=== PATIENT | female | born 1980 | race Caucasian/White ===

== ENCOUNTER 2017-06-25 09:02 | Emergency (ER) | payer BC, OTHER ==
[~2017-06-25] VITALS: Ht 157.5 cm; Wt 70.1 kg
[~2017-06-25 09:02] MED LIST: FERR1TAB23; PRENTAB26 PO
[2017-06-25 09:11] VITALS: TEMP 37; Ht 157.5 cm; Wt 70.1 kg
[2017-06-25] MEDS ORDERED: SODIUM CHLORIDE 0.9% 1000ML 1,000 ML IV ONE (10:00)
[2017-06-25] MEDS ORDERED: DiphenhydrAMINE HCL 50 MG/ML VIAL IV STA (10:00)
[2017-06-25] MEDS ORDERED: METOCLOPRAMIDE HCL INJ 5 MG/ML 2 ML VIAL IV. STA (10:00)
[2017-06-25 10:25] LABS: BASO % 0.1 %; BASO ABS # 0.01 K/uL (0-0.2); EOS % 0.3 %; EOS ABS # 0.03 K/uL (0-0.5); HEMATOCRIT 39.8 % (37-47); HEMOGLOBIN 13.5 g/dL (12.0-16.0); IG# 0.01 K/uL (0.00-0.02); LYMPH % 17.7 %; LYMPH ABS # 1.56 K/uL (1.2-3.4); MEAN CELL VOLUME 86.9 fL (80-100); MEAN CORPUSCULAR HEMOGLOBIN 29.5 pg (25-34); MEAN CORPUSCULAR HGB CONC 33.9 g/dl (32-36); MONO % 9.9 %; MONO ABS # 0.87 K/uL (0.11-0.59); NEUT % 71.9 %; NEUT ABS # 6.32 K/uL (1.4-6.5); PLATELET COUNT 273 K/uL (130-400); RED CELL DISTRIBUTION WIDTH CV 12.9 % (11.5-14.5); RED CELL DISTRIBUTION WIDTH SD 41.4 fL (36.4-46.3)
[2017-06-25 10:40] LABS: ALBUMIN 3.6 gm/dl (3.4-5.0); ALT/SGPT 28 U/L (12-78); AST/SGOT 13 U/L (15-37); BLOOD UREA NITROGEN 8 mg/dl (7-18); CALCIUM 8.8 mg/dl (8.5-10.1); CARBON DIOXIDE 24 mmol/L (21-32); CREATININE 0.85 mg/dl (0.60-1.20); GLUCOSE 90 mg/dl (70-99); LIPASE 125 U/L (73-393); POTASSIUM 3.9 mmol/L (3.5-5.1); SODIUM 139 mmol/L (136-145)
--- NOTE | 2017-06-25 10:41 | DIAGNOSTIC IMAGING REPORT ---
HEAD WITHOUT CONTRAST (CT) CLINICAL HISTORY: 37 years-old Female presenting with headache, migraine headache lasting one week. TECHNIQUE: Multidetector CT imaging of the head was performed without the use of intravenous contrast. IV contrast: None. A dose lowering technique was used consistent with the principles of ALARA (as low as reasonably achievable). COMPARISON: MR brain from 2008. CT DOSE (mGy.cm): The estimated cumulative dose is 537.48 mGy.cm. FINDINGS: Knocker Off topogram: Unremarkable. Ventricles and sulci normal in size. Brain parenchyma normal in appearance with preserved minor-white differentiation. No mass effect or midline shift. No hemorrhage or acute territorial infarct. No extra-axial fluid collection. Paranasal sinuses and mastoid air cells clear. Calvarium intact. IMPRESSION: 1. No acute intracranial abnormality. Electronically signed by: Can Rodas M.D. 06/25/2017 10:39 AM Dictated Date/Time: 06/25/2017 10:37 AM
[2017-06-25 10:43] LABS: ALKALINE PHOSPHATASE 105 U/L (45-117); TOTAL PROTEIN 7.7 gm/dl (6.4-8.2)
[2017-06-25] MEDS ORDERED: FRCT/ PO (12:12)
--- NOTE | 2017-06-25 12:17 | EMERGENCY ROOM VISIT NOTE ---
History Report prepared by Shania: Chevy Cardoza Under the Supervision of: Dr. Brandon Diana M.D. First contact with patient: 09:36 Chief Complaint: HEADACHE Stated Complaint: MIGRAINE THAT WON'T GO AWAY, BACK AND STOMACH PAIN History of Present Illness The patient is a 37 year old female who presents to the Emergency Room with complaints of a waxing and waning headache beginning a week ago. She has a history of migraines and states that her current headache feels like a typical migraine. Patient describes the pain as 9 out of 10. The patient has taken Excedrin Migraine and Tylenol for her symptoms, but nothing has improved her pain. She normally takes Fioricet PRN, but recently ran out. She states that her headache has been switching between a migraine, and a "dull" headache. The patient also complains of neck pain, vomiting, abdominal pain, and back pain. Her abdominal and back pain change locations regularly and have been present for the past week along with her headache. She vomited twice two days ago. The patient denies bloody vomit, black or bloody stools, rashes, or vaginal bleeding. She has a history of tubal ligation but is concerned she could be . Her LNMP was June 04- (about three weeks ago). The patient denies drug or recent alcohol use. She denies smoking. She has been seen in emergency departments in the past for migraines, and states that she is usually given Morphine for her pain. Source of History: patient Onset: One week ago Position: head Timing: waxes/wanes Modifying Factors (Relieving): other (none) Associated Symptoms: + neck pain, + vomiting (twice, two days ago), + abdominal pain (x1 week), + back pain (x1 week), No melena, No hematochezia, No rash Note: The patient denies bloody vomit, or vaginal bleeding. Review of Systems See HPI for pertinent positives and negatives. A total of ten systems were reviewed and were otherwise negative. Past Medical & Surgical Medical Problems: (1) laparoscopic bilateral tubal cauterization (2) Migraines (3) Unwanted fertility (4) Vaginal delivery Family History No pertinent family history stated. Social History Smoking Status: Never Smoker Alcohol Use: none Marital Status: Current/Historical Medications Scheduled PRN Acetamin/Butalbital/Caffeine (Fioricet), 1 TAB PO TID PRN for Headache Allergies Coded Allergies: Ketorolac (Unverified Allergy, Mild, 06/25/17) Sumatriptan (Unverified Allergy, Unknown, THROAT SWELLS., 06/25/17) Physical Exam Vital Signs Date Time Temp Pulse Resp B/P (MAP) Pulse Ox O2 Delivery O2 Flow Rate FiO2 06/25/17 12:50 76 109/79 97 06/25/17 11:54 78 119/85 99 06/25/17 10:43 118/81 06/25/17 09:11 37.0 88 18 149/84 96 Room Air Physical Exam Physical Exam GENERAL: She is oriented to person, place, and time. She appears well- developed and well-nourished. She does not appear distressed. ____ HENT: Exam performed. Head: Normocephalic and atraumatic. Right Ear: External ear normal. No mastoid tenderness. Left Ear: External ear normal. No mastoid tenderness. Mouth/Throat: The oropharynx is clear and moist. No trismus in the jaw. No dental abscesses or uvula swelling. Poor dentition noted. No oropharyngeal exudate or tonsillar abscesses. ____ EYES: Conjunctivae and EOM are normal. Pupils are equal, round, and reactive to light. Right eye exhibits no discharge. Left eye exhibits no discharge. No scleral icterus. No AV nicking or papilledema bilaterally.____ NECK: Normal range of motion. Neck supple. No JVD present. No spinous process tenderness present. No carotid bruit present. No rigidity. No tracheal deviation and normal range of motion present. No Brudzinski's sign and no Kernig 's sign noted. ____ CV: Normal rate, regular rhythm, normal heart sounds and intact distal pulses. There is no peripheral edema. Palpable radial pulses bue. ____ PULM/CHEST: Effort normal and breath sounds normal. No respiratory distress. No stridor. She has no wheezes. She has no rales. Chest Wall: She exhibits no tenderness. ____ ABD: The abdomen is soft. Bowel sounds are normal. She has no distension. No mass is present. There is no tenderness. There is no rebound, no guarding, no Garcia's sign and no tenderness at McBurney's point. Rovsig negative MUSC/SKEL: Normal range of motion. There is no peripheral edema, tenderness or deformity. LYMPH: No cervical adenopathy. ____ NEURO: She is alert and oriented to person, place, and time. She has normal strength. No cranial nerve deficit or sensory deficit. Coordination and gait normal. GCS eye subscore is 4. GCS verbal subscore is 5. GCS motor subscore is 6. Cerebellar tests wnl. ____ SKIN: Skin is warm and dry. She is not diaphoretic. ____ PSYCH: She has a normal mood and affect. Her behavior is normal. Judgment and thought content normal. ____ Medical Decision & Procedures ER Provider Diagnostic Interpretation: Radiology results as stated below per my review and radiologist interpretation: HEAD WITHOUT CONTRAST (CT) FINDINGS: Chief Information Officer topogram: Unremarkable. Ventricles and sulci normal in size. Brain parenchyma normal in appearance with preserved minor-white differentiation. No mass effect or midline shift. No hemorrhage or acute territorial infarct. No extra-axial fluid collection. Paranasal sinuses and mastoid air cells clear. Calvarium intact. IMPRESSION: 1. No acute intracranial abnormality. Electronically signed by: Can Rodas M.D. 06/25/2017 10:39 AM Laboratory Results 06/25/17 10:15 Red Blood Count 4.58, Mean Corpuscular Volume 86.9, Mean Corpuscular Hemoglobin 29.5, Mean Corpuscular Hemoglobin Concent 33.9, Mean Platelet Volume 10.0, Neutrophils (%) (Auto) 71.9, Lymphocytes (%) (Auto) 17.7, Monocytes (%) (Auto) 9.9, Eosinophils (%) (Auto) 0.3, Basophils (%) (Auto) 0.1, Neutrophils # (Auto) 6.32, Lymphocytes # (Auto) 1.56, Monocytes # (Auto) 0.87, Eosinophils # (Auto) 0.03, Basophils # (Auto) 0.01 06/25/17 10:15 Test 06/25/17 10:00 06/25/17 10:15 Urine Color YELLOW Urine Appearance CLEAR (CLEAR) Urine pH 6.5 (4.5-7.5) Urine Specific [place] 1.010 (1.000-1.030) Urine Protein NEG (NEG) Urine Glucose (UA) NEG (NEG) Urine Ketones NEG (NEG) Urine Occult Blood NEG (NEG) Urine Nitrite NEG (NEG) Urine Bilirubin NEG (NEG) Urine Urobilinogen NEG (NEG) Urine Leukocyte Esterase NEG (NEG) Urine Test NEG (NEG) White Blood Count 8.80 K/uL (4.8-10.8) Red Blood Count 4.58 M/uL (4.2-5.4) Hemoglobin 13.5 g/dL (12.0-16.0) Hematocrit 39.8 % (37-47) Mean Corpuscular Volume 86.9 fL (80-100) Mean Corpuscular Hemoglobin 29.5 pg (25-34) Mean Corpuscular Hemoglobin Concent 33.9 g/dl (32-36) Platelet Count 273 K/uL (130-400) Mean Platelet Volume 10.0 fL (7.4-10.4) Neutrophils (%) (Auto) 71.9 % Lymphocytes (%) (Auto) 17.7 % Monocytes (%) (Auto) 9.9 % Eosinophils (%) (Auto) 0.3 % Basophils (%) (Auto) 0.1 % Neutrophils # (Auto) 6.32 K/uL (1.4-6.5) Lymphocytes # (Auto) 1.56 K/uL (1.2-3.4) Monocytes # (Auto) 0.87 K/uL (0.11-0.59) Eosinophils # (Auto) 0.03 K/uL (0-0.5) Basophils # (Auto) 0.01 K/uL (0-0.2) RDW Standard Deviation 41.4 fL (36.4-46.3) RDW Coefficient of Variation 12.9 % (11.5-14.5) Immature Granulocyte % (Auto) 0.1 % Immature Granulocyte # (Auto) 0.01 K/uL (0.00-0.02) Anion Gap 7.0 mmol/L (3-11) Est Creatinine Clear Calc Drug Dose 83.9 ml/min Estimated GFR () 102.2 Estimated GFR (Non- 88.2 BUN/Creatinine Ratio 9.4 (10-20) Calcium Level 8.8 mg/dl (8.5-10.1) Total Bilirubin 0.4 mg/dl (0.2-1) Direct Bilirubin < 0.1 mg/dl (0-0.2) Aspartate Amino Transf (AST/SGOT) 13 U/L (15-37) Alanine Aminotransferase (ALT/SGPT) 28 U/L (12-78) Alkaline Phosphatase 105 U/L (45-117) Total Protein 7.7 gm/dl (6.4-8.2) Albumin 3.6 gm/dl (3.4-5.0) Lipase 125 U/L (73-393) Laboratory results reviewed by me Medications Administered Medications (Trade) Dose Ordered Sig/Beth Route Start Time Stop Time Status Last Admin Dose Admin Sodium Chloride 1,000 ml @ 999 mls/hr Q1H1M ONCE IV 06/25/17 10:00 06/25/17 11:00 DC 06/25/17 10:00 999 MLS/HR Metoclopramide HCl (Reglan Inj) 5 mg NOW STAT IV. 06/25/17 10:00 06/25/17 10:02 DC 06/25/17 10:38 5 MG Diphenhydramine HCl (Benadryl Inj) 25 mg NOW STAT IV 06/25/17 10:00 06/25/17 10:02 DC 06/25/17 10:37 25 MG ED Course 0953: The patient was evaluated in room B6. A complete history and physical exam was performed. 1000: Ordered Benadryl Inj 25 mg IV, Reglan Inj 5 mg IV, Sodium Chloride 1000 ml @ 999 mls/hr IV. 1115: I reevaluated the patient. Her headache has improved. She rates her current pain as a 4/10 in severity. Imaging and laboratory studies within normal limits. She will follow-up with her PCP. DISCHARGE - Plan of care discussed with patient and questions answered. The patient was given both verbal and printed discharge instructions. The patient verbalized understanding and ability to comply. The patient is to seek outpatient follow up as noted in the discharge instructions. The patient verbalized understanding and ability to comply. The patient is discharged in stable condition. The patient was instructed to return for worsening symptoms. Medical Decision 1000: Ordered Benadryl Inj 25 mg IV, Reglan Inj 5 mg IV, Sodium Chloride 1000 ml @ 999 mls/hr IV. 1115: I reevaluated the patient. Her headache has improved. She rates her current pain as a 4/10 in severity. Imaging and laboratory studies within normal limits. She will follow-up with her PCP. DISCHARGE - Plan of care discussed with patient and questions answered. The patient was given both verbal and printed discharge instructions. The patient verbalized understanding and ability to comply. The patient is to seek outpatient follow up as noted in the discharge instructions. The patient verbalized understanding and ability to comply. The patient is discharged in stable condition. The patient was instructed to return for worsening symptoms. [place] Drug Monitoring Program Search Results: patient reviewed within database, no issues identified, see additional documentation Drug Monitoring Findings: Checked in [place] and [place]. Medication Reconcilliation Current Medication List: was personally reviewed by me Blood Pressure Screening Patient's blood pressure: Normal blood pressure Blood pressure disposition: Did not require urgent referral Impression Primary Impression: Migraines Scribe Attestation The scribe's documentation has been prepared under my direction and personally reviewed by me in its entirety. I confirm that the note above accurately reflects all work, treatment, procedures, and medical decision making performed by me. The chart was completed utilizing [email or web address] Speech voice recognition software. Grammatical errors, random word insertions, pronoun errors, and incomplete sentences are an occasional consequence of this system due to software limitations, ambient noise, and hardware issues. Any formal questions or concerns about the content, text, or information contained within the body of this dictation should be directly addressed to the physician for clarification. Departure Information Dispostion Home / Self-Care Prescriptions Acetamin/Butalbital/Caffeine (FIORICET) 1 Ea Tab 1 TAB PO TID Y for Headache, #21 TAB Prov: Brandon Diana M.D. 06/25/17 Referrals No Doctor, Assigned (PCP) Forms HOME CARE DOCUMENTATION FORM, IMPORTANT VISIT INFORMATION Patient Instructions Headache Migraine Triggers Prevent, Migraine Stages Tx, My [facility] Health Problem Qualifiers Primary Impression: Migraines Migraine type: unspecified Status migrainosus presence: without status migrainosus Intractability: not intractable Qualified Codes: G43.909 - Migraine, unspecified, not intractable, without status migrainosus
[2017-06-25 12:50] VITALS: BP 109/79; PULSE 76; O2SAT 97
== END 2017-06-25 12:35 | disposition home or self-care (01) ==
LOC: C.EDB 09:04
DX: G43.909 Migraine, unspecified, not intractable, without status migrainosus (principal); Z98.51 Tubal ligation status; Z88.8 Allergy status to other drugs, medicaments and biological substances